=== PATIENT | female | born 1995 | race Caucasian/White ===

== ENCOUNTER → 2019-03-13 | Day surgery (SDC) | payer OTHER ==
--- NOTE | 2019-03-12 23:30 | Pre Op History & Physical ---
DATE OF SURGERY: March 13, 2019. CHIEF COMPLAINT: Chronic sinusitis with nasal obstruction. HISTORY OF PRESENT ILLNESS: This 24 years old female has a history of nasal obstruction, postnasal drip, discharge from her nose. The patient also complained of headaches. The patient has history of migraines, which is worse over the past 6 years. The patient has a history of nasal obstruction bilaterally. She has no epistaxis. She has postnasal drip. She has no previous injury to the nose. She complains of frontal and maxillary pain. She does have decreased sense of smell. Her condition has been treated with more than 10 weeks of topical nasal steroids, systemic steroids, antibiotics with no improvement. A CT scan of the paranasal sinuses showed the patient has chronic sinusitis, worse involving was the maxillary sinus. The patient is full code. The patient also has hypertrophy of inferior turbinate. The initial finding of the sinus condition was from a CT scan of the brain, was noted for because of the MRI of the brain showed chronic sinusitis. This was performed by her PCP, Dr. Fregoso. REVIEW OF SYSTEMS: Showed no recent cardiovascular, respiratory, or GI problems. PAST MEDICAL HISTORY: The patient has no significant medical problem. PAST SURGICAL HISTORY: The patient has wisdom teeth extraction. ALLERGIES: SHE HAS NO KNOWN ALLERGY TO MEDICATION. MEDICATIONS: She is on Fiorinal. SOCIAL HISTORY: Nonsmoker, nondrinker. FAMILY HISTORY: Noncontributory. PHYSICAL EXAMINATION: VITAL SIGNS: Within normal limits. EAR: Showed normal tympanic membranes bilaterally. NASAL: Showed hypertrophy of the inferior turbinate. OROPHARYNX AND ORAL CAVITY: Showed 1+ tonsils bilaterally with Mallampati level 2. NECK: Showed no lymph node or thyroid palpable. CHEST: Showed good air entry bilaterally. CARDIOVASCULAR: Showed S1, S2. No murmur noted. ASSESSMENT/PLAN: Ms. Dickerson has chronic sinusitis, nasal obstruction, which has been resistant to conservative therapy. The suggested treatment is endoscopic sinus surgery, septoplasty, resection of inferior turbinate and other necessary procedure. Complication of procedure includes, but not limited to bleeding, infection, CSF leak, blindness, double vision, meningitis, septal perforation, septal hematoma, persistent nasal obstruction, persistent nasal crusting, nasal deformity, persistent recurrence of the sinus problem and no improvement of the headaches. Alternatives will be continued observation, continued antibiotic therapy, topical nasal steroid therapy, systemic steroid therapy, decongestant. The patient has elected to undergo a surgical procedure. MD LEA Mbcride/ANDRES /[id number] cc: Dr. Fregoso
[~2019-03-13] MED LIST: ACETAMINOPHEN 1000 MG/100 ML 100 ML IV ONE; ACETAMINOPHEN/CODEINE 300MG - 30MG TAB ONE; DEXAMETHASONE SOD PHOS INJ 4 MG/ML VIAL ONE; EPINEPHRINE HCL 1:1000 1ML 1 MG/ML AMP ONE; FENTANYL CITRATE/PF 100MCG/2 ML INJ ONE; FIORICET; LIDOCAINE 1% W/EPINEPHRINE 20 ML VIAL ONE; LIDOCAINE HCL 2% LOCAL INJ 5 ML SDV VIAL INJ ONE; MIDAZOLAM HCL 2 MG/2 ML VIAL ONE; ONDANSETRON HCL INJ 2MG/ML 2ML 2 MG/ML VIAL ONE; PRENATAL TABLE1 EAC1; PROPOFOL IV EMULSION 10 MG/ML 20 ML VIAL ONE; ROCURONIUM BROMIDE 10 MG/ML 5ML VIAL ONE; SEVOFLURANE INHAL SOLN 250 ML PEN BTL ONE
[2019-03-13 12:54] VITALS: BP 114/79
--- NOTE | 2019-03-13 14:19 | Operative Report ---
DATE OF PROCEDURE: 03/13/2019 SURGEON: Bam Guzmán MD CHIEF COMPLAINT: Chronic sinusitis with nasal obstruction. POSTOPERATIVE DIAGNOSIS: Chronic sinusitis with nasal obstruction. OPERATIVE PROCEDURES: Bilateral anterior ethmoidectomy, bilateral maxillary sinus antrostomy, bilateral resection of tissue from maxillary antrum, bilateral resection of esha bullosa. ANESTHESIA: Anesthesiology group. INDICATIONS: This is a 24-year-old female, who has history of nasal obstruction, postnasal drip discharge from her nose and frontal and maxillary pain. The patient condition has been treated with more than 10 weeks of antibiotics, topical nasal steroid and systemic steroid with no improvement. On examination, the patient was noted to have hypertrophy of turbinate. A CT scan of paranasal sinuses done before surgery, it showed the patient has involvement of the ethmoid sinuses anteriorly, mainly when maxillary sinus involvement, worse on the right side. 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 It was decided that endoscopic sinus surgery and other necessary procedure will be beneficial for her. DESCRIPTION OF PROCEDURE: The patient was taken to operating room, put in general anesthesia, endotracheally intubated. The nose was injected with 1% Xylocaine with 1:100,000 epinephrine for hemostasis. Using a curved probe, natural ostium of the maxillary sinus was entered. This was enlarged anteriorly and posteriorly using backbiter and Mariano-Cut forceps respectively. Inflamed tissue and maxillary antrum was dissected using the up-biting Mariano-Cut forceps. Maxillary antrum was examined with the 45-degree endoscope. No other abnormality was noted. The right paranasal sinuses were approached. Middle turbinate was medialized. The bulla ethmoidalis was entered, no abnormality was noted. The lateral portion of the middle turbinate was dissected with the microshaver, thereby resecting the esha bullosa on the left. The right paranasal sinuses were approached. The middle turbinate was medialized. The bulla ethmoidalis was entered. Anterior ethmoid sinus was dissected in a systematic fashion. Polypoid inflamed tissue was noted in the anterior ethmoid sinus area. Care was taken during dissection to ascertain, elbow was not entered. Using the microshaver, the lateral portion of the middle turbinate was dissected by resecting the esha bullosa. Using a curved probe, the natural ostia of the maxillary sinus was entered. This was enlarged anteriorly and posteriorly using a backbiter and Mariano-Cut forceps respectively. Inflamed tissue and maxillary antrum was dissected using the microshaver. Again, the maxillary antrum was re-examined with a 45-degree endoscope. No abnormality was noted. The nasal cavity and nasopharynx were re-examined. No other abnormality was noted. NasoPore was inserted in the sinus cavities on either side. This was done to prevent synechiae formation and for hemostasis. The patient tolerated the above procedure well with estimated blood loss about 30 mL. She was given 20 mg of Decadron intraoperatively. The patient was able to be transferred to the recovery room in stable condition. MD LEA Mcbride/ANDRES /[id number] cc: Dr. Fregoso
== END | disposition home or self-care (01) ==
LOC: OR 10:05
PROVIDERS: ATTEND Otolaryngology Otolaryngology/Facial Plastic Surgery
DX: J32.0 Chronic maxillary sinusitis (principal); J32.2 Chronic ethmoidal sinusitis; J34.89 Other specified disorders of nose and nasal sinuses
CPT/HCPCS: 31240; 31255; 31267; 81025; 88305; J0131; J0171; J1100; J2001; J2250; J2405; J2704; 88304